=== PATIENT | female | born 1990 | race Caucasian/White ===

== ENCOUNTER 2019-12-22 15:07 | Outpatient (CLI) | payer BC ==
--- NOTE | 2019-12-22 16:35 | MRI ---
MRI RIGHT KNEE: 12/22/19 PROVIDED CLINICAL HISTORY: Right knee pain. FINDINGS: Comparison is made with a study dated 09/13/02. Interval postoperative changes of ACL reconstruction. Susceptibility artifact limits evaluation. The re is a somewhat indistinct and heterogeneous appearance to the ACL graft, particularly proximally, w hich may reflect tear. The posterior cruciate ligament, medial collateral ligament, lateral collatera l ligamentous complex and extensor mechanism appear intact. There is a nondisplaced vertical longitudinal tear involving the body and posterior horn of the media l meniscus. The lateral meniscus demonstrates no evidence for tear. There is marrow edema involving the posterior lateral tibial plateau and lateral femoral condyle. The re is minimal marrow edema involving the medial tibial plateau posteriorly. There is a small knee joint effusion with Khan's cyst. No focal concerning regional muscular signal abnormality is apparent. There is focal full thickness articular cartilage loss involving the posterior aspects of the lateral tibial plateau suspected. There is lateral tracking of the patella. IMPRESSION: 1. Limited study due to metallic susceptibility artifact. Indistinct and heterogeneous appearanc e to the ACL graft suggests tearing, supported by the pattern of marrow edema present about the knee. 2. Body and posterior horn medial meniscal tear. 3. Focal articular cartilage defect involving posterior aspect of the lateral tibial plateau. 4. Small knee joint effusion. POS: CAREN
== END 2019-12-22 15:08 | disposition home or self-care (01) ==
LOC: BICMRI 15:07
PROVIDERS: ATTEND Orthopaedic Surgery
DX: M25.561 Pain in right knee (principal); M25.461 Effusion, right knee; S83.241A Other tear of medial meniscus, current injury, right knee, initial encounter; M94.8X6 Other specified disorders of cartilage, lower leg; R60.0 Localized edema

== ENCOUNTER 2020-02-15 06:14 | Outpatient (CLI) | payer BC, OTHER ==
[2020-02-15 18:15] LABS: BHCG - Serum Negative (NEGATIVE); Pregs Control Background? CLEAR/WHITE (CLR/WHITE); Pregs Control Bar Appear? YES (CONTROL BAR)
[2020-02-15 18:32] LABS: #Eosinphils 0.1 thou/uL (0.0-0.7); #Lymphocytes 2.6 thou/uL (1.20-3.40); #Monocytes 0.3 thou/uL (0.11-0.59); #Neutrophils 3.4 thou/uL (1.40-6.50); %Basophils 0.4 % (0.0-1.0); %Eosinophils 1.9 % (0.0-10.0); %Lymphocytes 39.9 % (21.0-51.0); %Monocytes 5.3 % (0.0-10.0); %Neutrophils 52.6 % (42.0-75.0); Hemoglobin 14.5 g/dL (12.0-16.0); Mean Corpuscular HGB CONC 34.3 g/dL (32.0-36.0); Mean Corpuscular Hemoglobin 30.5 pg (27.0-31.0); Mean Platelet Volume 10.1 fL (7.4-10.4); Platelet Count 190 thou/uL (130-400); RBC Distribution Width 11.4 % (11.5-14.5); Red Blood Cell (RBC) Count 4.75 mill/uL (4.20-5.40); White Blood Cell (WBC) Count 6.4 thou/uL (4.8-10.8)
== END 2020-02-15 06:15 | disposition home or self-care (01) ==
LOC: LABBT 06:14
PROVIDERS: ATTEND Orthopaedic Surgery
DX: Z01.812 Encounter for preprocedural laboratory examination (principal); Z11.59 Encounter for screening for other viral diseases; S83.511A Sprain of anterior cruciate ligament of right knee, initial encounter
CPT/HCPCS: 84703; 85025

== ENCOUNTER 2020-02-17 06:01 | Observation (INO) | payer BC ==
[2020-02-17] MEDS ORDERED: Lidocaine 1% (PF) 30 ML VIAL ONE (06:42)
[2020-02-17] MEDS ORDERED: Fentanyl 100 MCG/2 ML VIAL ONE ×3 (06:42→09:49)
[2020-02-17] MEDS ORDERED: Midazolam HCl 2 mg/2 ml Vial ONE (06:42)
[2020-02-17] MEDS ORDERED: Promethazine HCl 25 MG/ML VIAL IM PRN (06:48)
[2020-02-17] MEDS ORDERED: Ropivacaine 0.2% 550 ML 550 ML NERVE BLCK SCH (06:48)
[2020-02-17] MEDS ORDERED: Ondansetron PF 4 MG/2 ML Vial IVP PRN (06:48)
[2020-02-17] MEDS ORDERED: traMADol HCl 50 MG TAB PO PRN ×2 (06:48)
[2020-02-17] MEDS ORDERED: HYDROcodone/Acetaminophen 10/325 mg Tablet PO PRN (06:48)
[2020-02-17] MEDS ORDERED: Zolpidem Tartrate 5 MG TAB PO PRN (06:48)
[2020-02-17] MEDS ORDERED: Fentanyl 100 MCG/2 ML VIAL SLOW IVP PRN (06:49)
[2020-02-17] MEDS ORDERED: Vancomycin 1.5 GRAM/300 ML BAG ONE (07:09)
[2020-02-17] MEDS ORDERED: Acetaminophen 500 MG TAB PO PRN (07:58)
[2020-02-17] MEDS ORDERED: Methocarbamol 500 MG TAB PO PRN (07:58)
[2020-02-17] MEDS ORDERED: diphenhydrAMINE 50 MG CAP PO PRN (07:58)
[2020-02-17] MEDS ORDERED: Bisacodyl 10 MG SUPP PR PRN (07:58)
[2020-02-17] MEDS ORDERED: HYDROcodone/Acetaminophen 7.5/325 mg Tablet PO PRN ×2 (07:58)
[2020-02-17] MEDS ORDERED: Milk Of Magnesia 30 ML UDCUP PO PRN (07:58)
[2020-02-17] MEDS ORDERED: Sodium Chloride 0.9% 1,000 ML IV SCH (08:00)
[2020-02-17] MEDS ORDERED: Etonogestrel/Ethinyl Estradiol [Nuvaring Vaginal Ring] VAG SCH (09:00)
[2020-02-17] MEDS ORDERED: lamoTRIgine 100 MG TAB PO SCH (09:00)
[2020-02-17] MEDS ORDERED: Ketorolac Tromethamine 30 MG/ML VIAL ONE (10:17)
[2020-02-17] MEDS ORDERED: Dexamethasone 20 MG/5 ML VIAL ONE (10:17)
[2020-02-17] MEDS ORDERED: PROPOFOL 200 MG/20 ML VIAL ONE (10:17)
[2020-02-17] MEDS ORDERED: Ropivacaine 0.2% HCl/PF (40 MG/20 ML VIAL) ONE (10:17)
[2020-02-17] MEDS ORDERED: Bupivacaine HCl 0.5%/Epinephrine 1:200,000/PF 30 ml Vial ONE (10:17)
[2020-02-17] MEDS ORDERED: Lidocaine 1% PF 5 ML VIAL ONE (10:17)
[2020-02-17] MEDS ORDERED: Ondansetron PF 4 MG/2 ML Vial ONE (10:17)
--- NOTE | 2020-02-17 11:10 | OP ---
DATE OF PROCEDURE: 02/17/2020 PREOPERATIVE DIAGNOSIS: Right knee torn anterior cruciate ligament graft. POSTOPERATIVE DIAGNOSIS: Right knee torn anterior cruciate ligament graft. PROCEDURES PERFORMED: Right knee arthroscopy with revision anterior cruciate ligament reconstruction using an allograft, Achilles tendon. DEVELOPER PROGRAMMER: Rivera Ace PA-C. COMPLICATIONS: None. ESTIMATED BLOOD LOSS: Minimal. ANESTHESIA: The patient had general anesthetic as well as a preoperative block. IMPLANTS: We used an 8 x 25 metal interference screw on the femur. We used a 9 x 30 [employer] interference screw on the tibia and we backed this up with a bicortical screw with a soft tissue washer on the tibia. INDICATIONS: This is a 29-year-old female who had an ACL reconstruction done 17 years ago. At this time, she recently had a new injury while playing with her children and was found to have a torn graft. She complains of instability and wished to have the knee taken care of. DESCRIPTION OF PROCEDURE: After all appropriate consent forms were explained and signed, she was taken back to the operative room and at this time was given a general anesthetic. Once the level of anesthesia was appropriate, an exam under anesthesia confirmed a positive Gaye's and a positive pivot shift. She was stable to varus and valgus stress. Negative posterior drawer. Tourniquet was placed on the right thigh. Leg was placed in an arthroscopic leg ham. The limb was then prepped and draped in standard surgical fashion. The limb was then exsanguinated and the tourniquet was taken up to 300 mmHg. Inferolateral portal was established. Scope was placed into the knee joint. A needle localization technique was then used to make our medial working portal. Diagnostic arthroscopy commenced in the notch. ACL graft was found to be torn. PCL was intact. At this time, remaining graft was removed from the knee and we were able to expose the head of our metal interference screw. This was removed without any complication. At this time, we turned our attention to the medial compartment. This was found to have a small undersurface tear in the posterior horn, and upon probing, this did not move anywhere, did not come in front of the femur, was felt to be deemed stable, and therefore, it was left alone. 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 No significant treatment was needed. Lateral compartment was completely intact. Gutters were swept through and no loose bodies were noted. The patellofemoral joint was also found to be in good condition. At this time, revision notchplasty was performed using the SERFAS energy as well as the shaver. At this time, any tissue was removed from off the ACL insertion onto the tibia. We then flexed the knee up, and through the medial portal, we placed a pin up and out the anterolateral thigh. A 10-mm reamer was then used to ream our femoral tunnel. All loose bony cartilaginous debris was removed from the knee joint. At this time, this tunnel was dilated with a 10-mm dilator. We then turned our attention to the tibia. The guide was set into the knee at 55 degrees. Pin was placed up into the knee joint. Prior to doing so, again, we have removed the previously placed screw and sutures and this new pin was placed through intact good bone. A 10-mm reamer was used to ream our tibial tunnel. A dilator was used to dilate to 10 mm. All loose bony and cartilaginous debris was removed from the knee joint. A red rasp and harleen were used to smooth off any edges, and at this time, we went dry. The knee was flexed up one more time, passing stitch was pulled into the knee joint using the Beath pin. This was pulled down the tibial tunnel and this was used to pull our graft up into the knee joint. Once the femoral plug had been docked, we placed our wire and an 8 x 25 metal interference screw to fixate our plug. This gave excellent fixation. We then placed a 9 x 30 Bio[employer]posite interference screw up the tibial tunnel with the knee in full extension. Posterior drawer being applied. We then drilled the far cortex from our previous screw site, tapped and placed a new 32-mm bicortical screw with a spiked washer for backup fixation. Once this was done, under direct visualization, the graft was taken through full range of motion and found to have no impingement through full flexion and extension. Scope was removed. Knee was drained. Portals were closed at this time. We then used some deep Vicryl and some nylon sutures to close our small incision. At this time, bulky sterile dressing was applied. Tourniquet was let down. Toes pinked up nicely. The patient was awakened. She was taken to recovery room in stable condition. All counts were correct at the end of the case. She received preoperative IV antibiotics. Job ID: [id number]
[2020-02-17] MEDS: Ketorolac Tromethamine 30 MG/ML VIAL IVP SCH ×2 (13:42→18:12)
[2020-02-17] MEDS: CEFAZOLIN 2 GM in Premix Bag 1 BAG IVPB SCH ×2 (13:43→21:07)
[2020-02-17] MEDS: PARoxetine 20 MG TAB PO SCH (14:15)
[2020-02-17] MEDS: Famotidine 20 MG TAB PO SCH ×2 (14:15→21:05)
[2020-02-17 16:19] VITALS: BMI 31.8
[2020-02-17] MEDS: HYDROcodone/Acetaminophen 10/325 mg Tablet PO PRN (21:06)
[2020-02-18] MEDS: Ketorolac Tromethamine 30 MG/ML VIAL IVP SCH ×3 (00:50→11:56)
[2020-02-18] MEDS: HYDROcodone/Acetaminophen 10/325 mg Tablet PO PRN (02:59)
[2020-02-18] MEDS: PARoxetine 20 MG TAB PO SCH (10:12)
[2020-02-18] MEDS: Famotidine 20 MG TAB PO SCH (10:13)
[2020-02-18 10:47] VITALS: BP 120/75; TEMP 98.3
== END 2020-02-18 13:30 | disposition home or self-care (01) ==
LOC: SDC 06:01 → SURG A 08:02
PROVIDERS: ADMIT Orthopaedic Surgery; ATTEND Orthopaedic Surgery
PROC: 0MRN47Z Replacement of Right Knee Bursa and Ligament with Autologous Tissue Substitute, Percutaneous Endoscopic Approach (ICD-10-PCS; principal; 2020-02-17)
PROC: 3E0T3BZ Introduction of Anesthetic Agent into Peripheral Nerves and Plexi, Percutaneous Approach (ICD-10-PCS; 2020-02-17)
PROC: 3E0T3BZ Introduction of Anesthetic Agent into Peripheral Nerves and Plexi, Percutaneous Approach (ICD-10-PCS; 2020-02-17)
DX: S83.511A Sprain of anterior cruciate ligament of right knee, initial encounter (principal); G89.18 Other acute postprocedural pain; J30.2 Other seasonal allergic rhinitis; F32.9 Major depressive disorder, single episode, unspecified; F41.9 Anxiety disorder, unspecified; Z79.899 Other long term (current) drug therapy; Z98.890 Other specified postprocedural states; X58.XXXA Exposure to other specified factors, initial encounter
CPT/HCPCS: 96374; 96375; 96376; A4306; C1713; G0378; J0670; J0690; J1100; J1885; J2001; J2250; J2405; J2704; J2795; J3010; J3370